=== PATIENT | female | born 1970 | race Asian ===

== ENCOUNTER 2018-05-01 18:52 | Inpatient (IN) | payer SELFPAY ==
[~2018-05-01] VITALS: Ht 142.2 cm; Wt 20.2 kg
[2018-05-01] MEDS ORDERED: SODIUM CHLORIDE 0.9% 1000ML 1,000 ML IV ONE (19:21)
[2018-05-01] MEDS ORDERED: METOCLOPRAMIDE 10 MG/2 ML VIAL ONE (19:44)
[2018-05-01] MEDS ORDERED: DiphenhydrAMINE HCL 50 MG/ML VIAL ONE (19:45)
[2018-05-01] MEDS ORDERED: KETOROLAC TROMETHAMINE 30MG/ML ONE (19:45)
[2018-05-01 19:48] LABS: BASOPHILS % (AUTO) 0.7 % (0.0-5.0); HEMATOCRIT 33.1 % (36-48); LYMPHOCYTES % (AUTO) 13.1 % (21.0-51.0); MEAN CORPUSCULAR HEMOGLOBIN 26.1 pg (27.0-33.0); MEAN CORPUSCULAR HGB CONC 33.7 g/dL (32.0-36.0); MEAN CORPUSCULAR VOLUME 77.6 fL (79-99); MONOCYTES % (AUTO) 5.6 % (3.0-13.0); NEUTROPHILS % (AUTO) 80.6 % (40.0-77.0); PLATELET COUNT (AUTO) 65 K/uL (130-400); RED BLOOD CELL COUNT(AUTO) 4.26 MIL/uL (4.00-5.50); RED CELL DISTRIBUTION WIDTH 14.5 % (11.0-15.5); WHITE BLOOD COUNT (AUTO) 5.1 K/uL (4.8-10.8)
[2018-05-01 20:01] LABS: INR 1.02 (0.85-1.15); PARTIAL THROMBOPLASTIN TIME 29.7 SEC (26.3-35.5); PROTHROMBIN TIME 10.7 SEC (9.6-11.6)
[2018-05-01] MEDS ORDERED: ACETAMINOPHEN EXTRA STRENGTH 500 MG TABLET ONE (20:05)
[2018-05-01 20:07] LABS: ALBUMIN 2.9 g/dL (3.5-5.0); BILIRUBIN,TOTAL 0.3 mg/dL (0.2-1.0); TOTAL PROTEIN, SERUM 7.5 g/dL (6.0-8.3)
[2018-05-01 20:10] LABS: POTASSIUM 2.9 mmol/L (3.5-5.1)
[2018-05-01] MEDS ORDERED: DOXYCYCLINE HYCLATE 100 MG TABLET PO ONE (21:00)
[2018-05-01] MEDS ORDERED: DOXYCYCLINE 100MG+NS 250ML 250 ML IV ONE (21:02)
[2018-05-01 21:33] LABS: APPEARANCE,URINE Clear (CLEAR); BILIRUBIN,URINE Negative (NEGATIVE); COLOR,URINE Yellow (YELLOW); GLUCOSE, URINE (UA) Negative (NEGATIVE); KETONES,URINE Negative (NEGATIVE); LEUKOCYTE ESTERASE ,URINE Small (NEGATIVE); NITRATE,URINE Negative (NEGATIVE); OCCULT BLOOD,URINE Small (NEGATIVE); PROTEIN,URINE POS 1+ (NEGATIVE); UROBILINOGEN,URINE 0.2 mg/dL (0.2-1.0)
[2018-05-01] MEDS: SODIUM CHLORIDE 0.9% 1000ML 1,000 ML IV SCH (22:06)
[2018-05-01 22:12] LABS: BACTERIA,URINE Few /HPF (None Seen); RBC,URINE 0-1 /HPF (0-1)
[2018-05-01 22:13] LABS: SQUAMOUS EPITHELIAL CELL,UR Rare /HPF (0-2)
[2018-05-01] MEDS ORDERED: ALBUTEROL SULFATE 0.083% 2.5 MG/3 ML INH IH PRN (22:15)
[2018-05-01] MEDS ORDERED: ONDANSETRON HCL 4 MG/2 ML VIAL IV PRN (22:15)
[2018-05-02] MEDS ORDERED: SODIUM CHLORIDE 0.9% 1000ML 1,000 ML IV ONE (00:21)
[2018-05-02] MEDS ORDERED: SODIUM CHLORIDE 0.9% 50 ML IV ONE (00:22)
[2018-05-02] MEDS ORDERED: ZOSYN 3.375GM+NS 50ML 50 ML IV ONE (00:22)
--- NOTE | 2018-05-02 00:45 | NUR ---
ADMIT PT ADMITTED TO ROOM 329,AAOX3. NO COMPLAINTS OF PAINS AT THIS TIME JUST FEELING WEAK AND NEEDING TO SLEEP. ADMISSION CARE DONE. ADMISSION DATA BASE COMPLETED. CONTINUED IVF OF NS FROM ER REGULATED AT 100CC/HR VIA PIV G20 TO RAC. CONTINUED IV ZOSYN WELL. KEPT COMFORTABLE AND RESTED WITH HOB ELEVATED. IN FOR MORE CARE AND MANAGEMENT. Addendum: 05/02/18 at 0138 by DARIAN DOWNS RN RN Amended: Links added.
--- NOTE | 2018-05-02 02:33 | NUR ---
PAGED [employer] WILLIAM TICKET PRINTER AND TAGGER FOR HOSPITALIST, PAGED VIA ANSWERING SERVICE. PA CALLED BACK AND REFERRED PT'S POTASSIUM LEVEL BEING LOW AND NO COVERAGE GIVEN IN ER. NEW MED ORDERS GIVEN, WILL MEDICATE PT.
[2018-05-02] MEDS ORDERED: POTASSIUM CHLORIDE 10% ELIXIR 20 MEQ/15 ML UDCUP PO PRN (03:00)
[2018-05-02] MEDS: POTASSIUM CHLORIDE 20MEQ/100ML 100 ML IV PRN ×2 (03:18→05:00)
[2018-05-02] MEDS: LIDOCAINE HCL-MPF 1% 2ML VIAL IVP PRN ×2 (03:19→05:01)
[2018-05-02] MEDS: POTASSIUM CHLORIDE 20 MEQ ERTAB PO PRN ×2 (03:19→05:01)
[2018-05-02 04:00] VITALS: BP 86/58
--- NOTE | 2018-05-02 05:00 | NUR ---
ASSIST ASSISTED PT TO THE RESTROOM. PT CLAIMS TO BE FEELING BETTER. CONTINUED PO AND IV COVERAGE OF POTASSIUM. TOLERATED MEDS WELL. KEPT RESTED IN BED. FOR MORE CARE.
[2018-05-02 06:36] LABS: ALBUMIN 2.2 g/dL (3.5-5.0); BILIRUBIN,TOTAL 0.3 mg/dL (0.2-1.0); POTASSIUM 3.9 mmol/L (3.5-5.1); TOTAL PROTEIN, SERUM 5.9 g/dL (6.0-8.3)
[2018-05-02 06:37] LABS: HEMATOCRIT 30.9 % (36-48); MEAN CORPUSCULAR HEMOGLOBIN 26.3 pg (27.0-33.0); MEAN CORPUSCULAR HGB CONC 33.3 g/dL (32.0-36.0); MEAN CORPUSCULAR VOLUME 78.8 fL (79-99); NUCLEATED RED BLOOD CELLS 0.1 % (0.0-0.19); PLATELET COUNT (AUTO) 55 K/uL (130-400); RED BLOOD CELL COUNT(AUTO) 3.92 MIL/uL (4.00-5.50); RED CELL DISTRIBUTION WIDTH 15.1 % (11.0-15.5); WHITE BLOOD COUNT (AUTO) 4.6 K/uL (4.8-10.8)
[2018-05-02 08:00] VITALS: BP 93/62
[2018-05-02] MEDS: FAMOTIDINE 20MG TAB 20 MG TAB PO SCH ×2 (08:44→22:27)
[2018-05-02] MEDS: BENZONATATE 100 MG CAPSULE PO SCH ×3 (08:44→22:28)
[2018-05-02] MEDS: ENOXAPARIN SODIUM 30 MG/0.3 ML SQ SCH ×2 (08:49→21:00)
[2018-05-02] MEDS: DOXYCYCLINE 100MG+NS 250ML 250 ML IV SCH ×2 (08:50→22:27)
[2018-05-02 11:41] VITALS: BP 114/72
[2018-05-02] MEDS: ACETAMINOPHEN 325 MG TAB PO PRN (12:58)
[2018-05-02] MEDS: ZOSYN 3.375GM+NS 50ML 50 ML IV SCH ×2 (13:09→18:03)
[2018-05-02] MEDS ORDERED: SODIUM CHLORIDE 0.9% 500ML 500 ML IV SCH (14:45)
[2018-05-02] MEDS: SODIUM CHLORIDE 0.9% 1000ML 1,000 ML IV SCH (15:53)
[2018-05-02 16:00] VITALS: BP 108/67
--- NOTE | 2018-05-02 16:55 | NUR ---
cm note met with patient and states resides athome with boyfriend independent and active athmt. 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 does not see PCP. and informed pt importance of md followup for meds and md. verbalizes understanding. informed of community rx assist programs, and also has follwup with [facility] for possible amisha program or medicaid. [facility] dc plan is back to home. no dc needs. Addendum: 05/02/18 at 1658 by KUSH GORE CM Amended: Links added.
[2018-05-02 19:43] VITALS: BP 115/76
--- NOTE | 2018-05-02 22:25 | NUR ---
LOVENOX PT'S PLATELET IS LOW AT 55, HELD LOVENOX DOSE AT THIS TIME. WILL REFER TO HOSPITALIST.
--- NOTE | 2018-05-02 22:30 | NUR ---
MEDS PIV RE-INSERTED G20 TO LFA. PT TOLERATED RE-INSERTION WELL. DUE MEDS ADMINISTERED, TOLERATED WELL. KEPT RESTED AND COMFORTABLE IN BED. CALL LIGHT WITHIN REACH. WILL CONTINUE TO MONITOR.
[2018-05-02 23:44] VITALS: BP 128/95
--- NOTE | 2018-05-03 02:00 | NUR ---
AMBULATE PT IS AMBULATORY ON HER OWN, GOING TO THE BATHROOM. NO DISTRESS NOTED AT THIS TIME. KEPT COMFORTABLE IN BED. INFUSED DUE ANTIBIOTICS. ENCOURAGED TO GO BACK TO SLEEP. CALL LIGHT WITHIN REACH.
[2018-05-03] MEDS: ZOSYN 3.375GM+NS 50ML 50 ML IV SCH ×3 (02:10→16:59)
--- NOTE | 2018-05-03 03:35 | NUR ---
REFER PAGED [employer] WILLIAM MOTOR ADJUSTER FOR HOSPITALIST, VIA ANSWERING SERVICE. PA CALLED BACK AND REFERRED PT'S LLOW PLATELETS. ORDERED TO HOLD LOVENOX DOSE.
[2018-05-03] MEDS: SODIUM CHLORIDE 0.9% 1000ML 1,000 ML IV SCH ×2 (04:01→17:00)
[2018-05-03 04:29] VITALS: BP 114/76
[2018-05-03 04:31] LABS: BASOPHILS % (AUTO) 0.4 % (0.0-5.0); EOSINOPHILS % (AUTO) 3.3 % (0.0-8.0); HEMATOCRIT 28.5 % (36-48); MEAN CORPUSCULAR HEMOGLOBIN 26.1 pg (27.0-33.0); MEAN CORPUSCULAR HGB CONC 33.3 g/dL (32.0-36.0); MEAN CORPUSCULAR VOLUME 78.3 fL (79-99); MONOCYTES % (AUTO) 6.5 % (3.0-13.0); NEUTROPHILS % (AUTO) 66.8 % (40.0-77.0); PLATELET COUNT (AUTO) 82 K/uL (130-400); RED BLOOD CELL COUNT(AUTO) 3.64 MIL/uL (4.00-5.50); RED CELL DISTRIBUTION WIDTH 14.8 % (11.0-15.5); WHITE BLOOD COUNT (AUTO) 6.2 K/uL (4.8-10.8)
[2018-05-03 04:46] LABS: CREATININE 0.8 mg/dL (0.5-1.5); POTASSIUM 3.5 mmol/L (3.5-5.1)
[2018-05-03] MEDS: POTASSIUM CHLORIDE 20 MEQ ERTAB PO PRN ×2 (05:15→08:33)
--- NOTE | 2018-05-03 06:50 | NUR ---
VICTORIAN LITERATURE PROFESSOR AJ, VICTORIAN LITERATURE PROFESSOR FOR HOSPITALIST, IN TO SEE PT. NEW ORDERS GIVEN, PLEASE REFER TO CPOE.
[2018-05-03] MEDS: ACETAMINOPHEN 325 MG TAB PO PRN ×2 (07:03→20:51)
[2018-05-03 07:59] VITALS: BP 120/65
[2018-05-03] MEDS: FAMOTIDINE 20MG TAB 20 MG TAB PO SCH ×2 (08:32→20:51)
[2018-05-03] MEDS: BENZONATATE 100 MG CAPSULE PO SCH ×3 (08:32→20:51)
[2018-05-03] MEDS: DOXYCYCLINE 100MG+NS 250ML 250 ML IV SCH ×2 (08:33→20:51)
[2018-05-03 11:30] VITALS: BP 108/70
[2018-05-03] MEDS ORDERED: MAGNESIUM 2GM PREMIX 50ML 50 ML IV PRN (13:45)
[2018-05-03 15:30] VITALS: BP 128/71
[2018-05-03 20:34] VITALS: BP 112/84
[2018-05-03] MEDS ORDERED: ZOLPIDEM TARTRATE 5 MG TAB PO SCH (21:00)
[2018-05-04 00:23] VITALS: BP 124/68
[2018-05-04] MEDS: ZOSYN 3.375GM+NS 50ML 50 ML IV SCH ×2 (02:59→10:33)
[2018-05-04 03:41] VITALS: BP 120/85
[2018-05-04 05:49] LABS: BASOPHILS % (AUTO) 0.5 % (0.0-5.0); EOSINOPHILS % (AUTO) 5.6 % (0.0-8.0); HEMATOCRIT 28.7 % (36-48); LYMPHOCYTES % (AUTO) 32.3 % (21.0-51.0); MEAN CORPUSCULAR HEMOGLOBIN 25.7 pg (27.0-33.0); MEAN CORPUSCULAR HGB CONC 33.2 g/dL (32.0-36.0); MEAN CORPUSCULAR VOLUME 77.3 fL (79-99); MONOCYTES % (AUTO) 10.3 % (3.0-13.0); NEUTROPHILS % (AUTO) 51.3 % (40.0-77.0); NUCLEATED RED BLOOD CELLS 0.1 % (0.0-0.19); PLATELET COUNT (AUTO) 113 K/uL (130-400); RED BLOOD CELL COUNT(AUTO) 3.72 MIL/uL (4.00-5.50); RED CELL DISTRIBUTION WIDTH 14.9 % (11.0-15.5); WHITE BLOOD COUNT (AUTO) 6.6 K/uL (4.8-10.8)
[2018-05-04 06:05] LABS: CREATININE 0.7 mg/dL (0.5-1.5); POTASSIUM 3.8 mmol/L (3.5-5.1)
[2018-05-04 08:00] VITALS: BP 131/83
[2018-05-04] MEDS: DOXYCYCLINE 100MG+NS 250ML 250 ML IV SCH (09:10)
[2018-05-04] MEDS: FAMOTIDINE 20MG TAB 20 MG TAB PO SCH (09:11)
[2018-05-04] MEDS: BENZONATATE 100 MG CAPSULE PO SCH ×2 (09:11→13:34)
[2018-05-04] MEDS: ACETAMINOPHEN 325 MG TAB PO PRN (09:19)
[2018-05-04] MEDS: SODIUM CHLORIDE 0.9% 1000ML 1,000 ML IV SCH (09:33)
[2018-05-04] MEDS ORDERED: CEFD300C3 PO (09:38)
[2018-05-04] MEDS ORDERED: DOXY100C2 PO (09:38)
[2018-05-04 12:00] VITALS: BP 129/81
== END 2018-05-04 19:30 | disposition home or self-care (01) | DRG 871 ==
LOC: EDBD 18:52 → EDH 18:52 → OBSVTOIN 18:53 → EDHIP 18:53 → UNDOADMOB 21:50 → 3AH 23:52
PROVIDERS: ADMIT Hospitalist; ATTEND Hospitalist
DX: A41.9 Sepsis, unspecified organism (principal); J18.1 Lobar pneumonia, unspecified organism; E86.0 Dehydration; Z88.7 Allergy status to serum and vaccine
CPT/HCPCS: 36415; 71045; 80048; 80053; 81001; 82550; 83605; 83690; 83735; 84443; 84484; 85025; 85027; 85610; 85730; 86308; 86757; 87040; 87077; 87088; 87186; 87804; 93005; 94664; G0378; J1200; J1650; J1885; J2543; J2765; J3475; J3480; J3490; J7030

== ENCOUNTER 2021-05-22 15:57 | Emergency (ER) | payer OTHER ==
[~2021-05-22] VITALS: Ht 142.2 cm; Wt 54.4 kg
[~2021-05-22 15:57] MED LIST: CEFD300C3 PO; DOXY100C5 PO
[2021-05-22 16:29] LABS: APPEARANCE,URINE CLEAR (CLEAR); BILIRUBIN,URINE NEGATIVE (NEGATIVE); COLOR,URINE YELLOW (YELLOW); GLUCOSE, URINE (UA) 100 mg/dL (NEGATIVE); KETONES,URINE NEGATIVE (NEGATIVE); LEUKOCYTE ESTERASE ,URINE SMALL (NEGATIVE); NITRATE,URINE NEGATIVE (NEGATIVE); OCCULT BLOOD,URINE TRACE-LYSED (NEGATIVE); PH,URINE 6.5 (5.0-8.0); PROTEIN,URINE NEGATIVE (NEGATIVE); UROBILINOGEN,URINE 0.2 mg/dL (0.2-1.0)
[2021-05-22 16:39] LABS: BACTERIA,URINE Few /HPF (None Seen); RBC,URINE 0-1 /HPF (0-1); SQUAMOUS EPITHELIAL CELL,UR Few /HPF (0-2); TRANSITIONAL EPI CELLS,URINE Few /HPF (None Seen)
[2021-05-22 16:42] LABS: BASOPHILS % (AUTO) 0.2 % (0.0-5.0); EOSINOPHILS % (AUTO) 1.3 % (0.0-8.0); HEMATOCRIT 40.5 % (36-48); LYMPHOCYTES % (AUTO) 19.9 % (21.0-51.0); MEAN CORPUSCULAR HEMOGLOBIN 27.5 pg (27.0-33.0); MEAN CORPUSCULAR HGB CONC 32.1 g/dL (32.0-36.0); MEAN CORPUSCULAR VOLUME 85.6 fL (79-99); MONOCYTES % (AUTO) 6.1 % (3.0-13.0); NEUTROPHILS % (AUTO) 72.1 % (40.0-77.0); PLATELET COUNT (AUTO) 221 K/uL (130-400); RED BLOOD CELL COUNT(AUTO) 4.73 MIL/uL (4.00-5.50); RED CELL DISTRIBUTION WIDTH 14.5 % (11.0-15.5); WHITE BLOOD COUNT (AUTO) 8.3 K/uL (4.8-10.8)
[2021-05-22 16:55] LABS: CREATININE 0.9 mg/dL (0.5-1.5); POTASSIUM 3.3 mmol/L (3.5-5.1)
[2021-05-22 17:00] LABS: ALBUMIN 3.6 g/dL (3.5-5.0); BILIRUBIN,TOTAL 0.1 mg/dL (0.2-1.0); TOTAL PROTEIN, SERUM 8.2 g/dL (6.0-8.3)
[2021-05-22 18:04] VITALS: BP 135/78
== END 2021-05-22 18:11 | disposition home or self-care (01) ==
LOC: EDH 15:57
DX: F43.0 Acute stress reaction (principal); R42 Dizziness and giddiness; I10 Essential (primary) hypertension
CPT/HCPCS: 36415; 80053; 81001; 84484; 85025; 93005